=== PATIENT | female | born 1995 | race Caucasian/White ===

== ENCOUNTER → 2017-08-17 17:55 | Outpatient (CLI) | payer OTHER, SELFPAY ==
[2017-08-23 10:18] LABS: HPV Reflexed? NOT INDICATED
== END ==
PROVIDERS: Visit Provider Obstetrics & Gynecology
DX: Z12.4 Encounter for screening for malignant neoplasm of cervix (principal)
CPT/HCPCS: 88175; G0145

== ENCOUNTER → 2017-08-19 09:10 | Outpatient (CLI) | payer OTHER, SELFPAY ==
[2017-08-19 12:51] LABS: Glucose 86 mg/dL (74-106)
[2017-08-20 12:41] LABS: Insulin 3.4 mU/L (2.6-37.6); Vitamin D,25 Hydroxy 18.7 ng/mL (29.95-100.01)
== END ==
PROVIDERS: Visit Provider Obstetrics & Gynecology
DX: B37.9 Candidiasis, unspecified (principal)
CPT/HCPCS: 36415; 82306; 82947; 83525

== ENCOUNTER → 2017-11-24 08:33 | Outpatient (CLI) | payer OTHER, SELFPAY | PROVIDERS: Visit Provider Obstetrics & Gynecology | DX: E55.9 Vitamin D deficiency, unspecified (principal) | CPT/HCPCS: 36415; 82306 ==

== ENCOUNTER → 2018-02-09 08:39 | Outpatient (CLI) | payer OTHER, SELFPAY ==
[2018-02-09 10:55] LABS: Estradiol 28.9 pg/mL; Free T3 2.6 pg/mL (2.18-3.98); Prolactin 8.8 ng/mL; T4 Free Direct 0.97 ng/dL (0.76-1.46); Thyroid Stim Hormone (TSH) 1.72 uIU/mL (0.358-3.74)
[2018-02-10 04:08] LABS: DHEA Sulfate 253.2 ug/dL (110.0-431.7)
[2018-02-10 16:10] LABS: Sex Hormone-binding Globulin 86.1 nmol/L (24.6-122.0)
[2018-02-13 12:57] LABS: 17-Hydroxyprogesterone 23 ng/dL (.)
== END ==
PROVIDERS: Visit Provider Obstetrics & Gynecology
DX: R68.82 Decreased libido (principal); N92.6 Irregular menstruation, unspecified
CPT/HCPCS: 36415; 82533; 82627; 82670; 83001; 83498; 84144; 84146; 84270; 84403; 84439; 84443; 84481; 82626

== ENCOUNTER → 2019-07-17 14:14 | Outpatient (CLI) | payer OTHER, SELFPAY | DX: T78.40XA Allergy, unspecified, initial encounter (principal) | CPT/HCPCS: 36415 ==